=== PATIENT | male | born 1955 | race Caucasian/White ===

== ENCOUNTER 2022-04-23 08:54 | Emergency (ER) | payer MEDICARE ==
[2022-04-23] MEDS ORDERED: Sodium Chloride 0.9% 10 ML Syringe FLUSH PRN (09:01)
[2022-04-23] MEDS ORDERED: Furosemide 40 MG/4 ML VIAL IVPUSH ONE (09:01)
[2022-04-23] MEDS ORDERED: Aspirin 81 MG Tab.Chew PO ONE (09:04)
[2022-04-23] MEDS ORDERED: Nitroglycerin/D5W 25 MG/250 ML BOTTLE IV SCH (09:15)
[2022-04-23 09:56] LABS: ESTIMATED GFR 55 mL/min (>60)
[2022-04-23] MEDS ORDERED: Etomidate 2 MG/ML 20 ML SDV IVPUSH ONE (10:05)
[2022-04-23] MEDS ORDERED: Rocuronium 50 MG/5 ML Vial IVPUSH ONE (10:06)
[2022-04-23] MEDS ORDERED: Rocuronium 100 MG/10 ML MDV IV STA (10:06)
[2022-04-23] MEDS ORDERED: Midazolam 1 MG/ML 2 ML SDV ONE ×3 (10:19→10:20)
[2022-04-23] MEDS ORDERED: Midazolam 1 MG/ML 2 ML SDV IVPUSH ONE ×2 (10:24→10:39)
== END 2022-04-23 10:45 ==
LOC: FB.ED 08:54
DX: J81.0 Acute pulmonary edema (principal); J96.90 Respiratory failure, unspecified, unspecified whether with hypoxia or hypercapnia; R73.9 Hyperglycemia, unspecified
CPT/HCPCS: 31500; 36415; 51702; 71045; 80048; 83880; 84484; 85027; 96365; 96375; 99285; J1940; J2250; J3490